=== PATIENT | male | born 1965 | race Hispanic/Latino ===

== ENCOUNTER → 2024-05-07 | Outpatient (CLI) | payer SELFPAY ==
[~2024-05-07] MED LIST: PERFLUTREN PROTEIN-A MICROSPHR 0.22 MG/ML VIAL IV ONE
--- NOTE | 2024-05-12 09:09 | HMCSR ---
APPROVED REPORT EXAM: Two-dimensional and M-mode echocardiogram with Doppler and color Doppler with contrast INDICATION ICD: I51.3 Contrast Details Indication: Rule out thrombus Agent/Amount Used: Optison 3mL 2D Dimensions RVDd3.5 cmLVEF(%)32.5 (>50%)LVED Vol(simp.)116.0 mL IVSd1.2 (0.7-1.1cm)FS(%)15 %LVES Vol(simp.)66.0 mL LVDd5.2 (3.8-5.6cm)LVOT diam2.4 (1.8-2.4cm)LVEF(%, simp.)43 % PWd1.4 (0.7-1.1cm)LA ESV INDEX (4CH)14.00 mL/m2 IVSs1.4 cmLA ESV INDEX (2CH)21.20 mL/m2 LVDs4.4 (2.5-4.0cm)LA ESV INDEX (BP)17.00 mL/m2 PWs2.3 cm M-Mode Dimensions EPSS1.0 cm LA (MM)4.0 (1.6-4.0cm) Ao Root(MM)3.8 (2.0-3.7cm) Aortic Valve AoV VTI0.2 mAo Mean GR4.0 mmHgLVOT VTI0.11 m CANDELARIA (VMAX)2.4 cm2AVA (VTI) 2.4 cm2 Mitral Valve MV E Vmax57.2 cm/sDECEL Eqcp477 ms MV A Vmax46.1 cm/sP 1/2 T73 ms E/A ratio1.2MVA (PHT)3.0 cm2 TDI E/E' Medial9.9E/E' Lateral9.4 Medial E' Peak V5.80 cm/sLateral E' Peak V6.10 cm/s Pulmonary Valve PV Vmax1.1 m/s PV Peak GR4.6 mmHg Tricuspid Valve TR Vmax1.2 m/s TR Peak GR5.7 mmHg Left Ventricle Left ventricular cavity size is normal. Mild anterior and apical hypokinesis Mild concentric left chase tricular hypertrophy. LVEF is 40-45%. No left ventricle thrombus noted on this study. Right Ventricle The right ventricle is normal size.No right ventricle thrombus noted on this study. Right ventricular systolic function is moderately reduced. Atria The left atrial size is normal.There is no mass or thrombus suspected in the left atrium. The right a trium size is normal.There is no mass or thrombus suspected in the right atrium. Aortic Valve The aortic valve is trileaflet normal in structure and function. No aortic regurgitation is present. There is no aortic valvular stenosis. Mitral Valve Mitral valve leaflets open well. There is no mitral valve regurgitation noted. There is no mitral renita ve stenosis. Tricuspid Valve The tricuspid valve is normal in structure and function. There is no tricuspid valve regurgitation no brenna. Pulmonic Valve The pulmonary valve is normal in structure and function. There is no pulmonic valvular regurgitation. Great Vessels The aortic root is normal in size. The IVC is normal in size and collapses >50% with inspiration. Pericardium No pericardial effusion. Other Information Quality : Fair Conclusion LVEF is 40-45%. No left ventricle thrombus noted on this study. Mild anterior and apical hypokinesis The aortic root is normal in size. No pericardial effusion.
== END | disposition home or self-care (01) ==
LOC: RAH 13:21
PROVIDERS: ATTEND Internal Medicine Cardiovascular Disease
DX: I51.7 Cardiomegaly (principal); I51.3 Intracardiac thrombosis, not elsewhere classified
CPT/HCPCS: C8929; Q9956